=== PATIENT | female | born 1950 | race Caucasian/White ===

== ENCOUNTER 2017-06-14 07:51 | Day surgery (SDC) | payer OTHER, BC ==
--- OUTSIDE RECORDS SUMMARY | 2017-06-14 07:54 | XMS REPORT | Clinical Summary ---
:1950 Author Organization [facility] Address [address] [place] [address] Care Team Providers Name Role Phone Mario Solis MD Primary Care Provider Allergies Active Allergy Reactions Severity Noted Date Comments Adhesive Tape-Silicones Other (See Comments) Low 09/06/2016 Blisters Alcohol Anaphylaxis High 09/06/2016 Isopropyl Alcohol Anaphylaxis High 09/06/2016 Codeine Anaphylaxis High 09/06/2016 Iodinated Contrast- Oral And Anaphylaxis High 09/06/2016 Iv Dye Iodine Anaphylaxis High 09/06/2016 Latex Anaphylaxis High 09/06/2016 Penicillins Rash Low 09/06/2016 Promethazine Hives, Shortness Of Breath High 09/06/2016 Sulfa (Sulfonamide Rash Low 09/06/2016 Antibiotics) Current Medications Prescription Sig. Disp. Refills Start Date End Date Status fluticasone 2 sprays by Each Active (FLONASE) 50 Nare route daily mcg/actuation nasal as needed for spray allergies. traMADol (ULTRAM) Take 50 mg by Active 50 mg tablet mouth every 6 (six) hours as needed for moderate pain. pantoprazole Take 40 mg by Active (PROTONIX) 40 MG EC mouth 2 (two) tablet times a day. riFAXimin (XIFAXAN) Take 550 mg by Active 550 mg tablet mouth 2 (two) times a day. valsartan (DIOVAN) Take 40 mg by Active 40 MG tablet mouth every evening. sucralfate Take 1 g by Active (CARAFATE) 100 mouth 4 (four) mg/mL suspension times a day with meals and nightly. montelukast Take 10 mg by Active (SINGULAIR) 10 mg mouth nightly. tablet kchnnj-tkenefuk-okv Take 1 capsule Active lase (CREON) by mouth 3 36,000-114,000- (three) times a 180,000 unit day with meals. capsule,delayed release(DR/EC) furosemide (LASIX) Take 10-20 mg by Active 20 mg tablet mouth daily as needed. benzonatate Take 100-200 mg Active (TESSALON) 100 MG by mouth 3 capsule (three) times a day as needed for cough. ranitidine (ZANTAC) Take 150 mg by Active 150 MG tablet mouth every evening. cholecalciferol, Take 400 Units Active vitamin D3, by mouth daily. (VITAMIN D3) 400 unit tablet cyanocobalamin 1000 Take 1,000 mcg Active MCG tablet by mouth daily. cetirizine (ZyrTEC) Take 10 mg by Active 10 MG tablet mouth every evening. carvedilol (COREG) Take 3.125 mg by Active 3.125 MG tablet mouth 2 (two) times a day with meals. lactulose 10 Take / - 1/ Active gram/15 mL (15 mL) tsp by mouth solution twice daily magnesium 200 mg Take 1 tablet by Active tablet mouth every evening. LACTOBACILLUS Take 1 capsule Active ACIDOPHILUS by mouth every (PROBIOTIC ORAL) evening. lidocaine-prilocain Apply 1 Active e (EMLA) 2.5-2.5 % application cream topically as needed for mild pain (for port a cath access). lactulose Take 10 g by 09/07/19 Discontinued (CEPHULAC) 10 gram mouth 3 (three) 17 packet times a day. aspirin (ECOTRIN) Take 81 mg by 09/07/19 Discontinued 81 MG enteric mouth daily. 17 coated tablet SACCHAROMYCES Take by mouth. 09/07/19 Discontinued BOULARDII 17 (PROBIOTIC, S.BOULARDII, ORAL) magnesium oxide 250 Take 250 mg by 09/07/19 Discontinued mg tablet mouth daily. 17 rivaroxaban Take 20 mg by 09/13/19 Discontinued (XARELTO) 20 mg mouth daily. 17 tablet pregabalin (LYRICA) Take 3 capsules 90 capsule 1 09/12/2016 09/14/19 Discontinued 25 MG capsule (75 mg total) by 17 mouth daily for 30 days. pregabalin (LYRICA) Take 3 capsules 90 capsule 1 09/13/2016 10/14/19 25 MG capsule (75 mg total) by 17 mouth daily for 30 days. Active Problems Problem Noted Date Gastrointestinal hemorrhage with melena 09/06/2016 Disorder of liver 09/06/2016 Encounters Date Type Specialty Care Team Description Patient Quality Edwin Roman PharmD Procedure Pass General Internal 7 Medicine Procedure Pass Gastroenterology 7 Surgery Gastroenterology [place], ESOPHAGOGASTRODUODENOSCOPY Edwin Nuñez (EGD) Procedure Pass General Surgery 7 Surgery General Surgery Galroxane, ESOPHAGOGASTRODUODENOSCOPY Edwin Nuñze (EGD) [facility] General Internal [facility], Gastrointestinal hemorrhage with melena (Primary Dx); 7 - Encounter Medicine Eden Meza, DO Anemia, unspecified type Edwin Casey MD Dinakar, Hal yusuf MD after 06/13/2016 Social History Tobacco Use Types Packs/Day Years Used Date Never Smoker Alcohol Use Drinks/Week oz/Week Comments No Sex Assigned at Date Recorded Not on file Last Filed Vital Signs Vital Sign Reading Time Taken Blood Pressure 112/56 09/12/2016 7:22 AM CDT Pulse 60 09/12/2016 7:22 AM CDT Temperature 36.4 C (97.5 F) 09/12/2016 7:22 AM CDT Respiratory Rate 16 09/12/2016 7:22 AM CDT Oxygen Saturation 98% 09/12/2016 7:22 AM CDT Inhaled Oxygen Concentration - - Weight 93.6 kg (206 lb 4.8 oz) 09/12/2016 6:38 AM CDT Height 162.6 cm (5' 4") 09/11/2016 5:54 PM CDT Body Mass Index 35.41 09/12/2016 6:38 AM CDT Plan of Treatment Health Maintenance Due Date Last Done Comments COLONOSCOPY 07/10/1999 MAMMOGRAM 07/10/1999 ZOSTER VACCINE 2009 PNEUMOCOCCAL POLYSACCHARIDE VACCINE AGE 65 AND OVER 2014 PNEUMOCOCCAL-13 2014 INFLUENZA VACCINE 10/17/2016 Procedures Procedure Name Priority Date/Time Associated Diagnosis Comments ESOPHAGOGASTRODUODENOSCOPY (EGD) 09/09/2016 Gastrointestinal 9:00 AM CDT hemorrhage with melena after 06/13/2016 Results Prothrombin time with INR (09/12/2016 4:47 AM)Only the most recent of7 resultswithin the time period is included. Component Value Ref Range Prothrombin time 15.6 (H) 12.0 - 15.0 sec INR 1.2 Comment: The International Normalized Ratio (INR) is a therapeutic monitoring tool for patients who are stable on oral anticoagulant therapy. An INR of 2.0-3.0 is suggested for deep vein thrombosis/pulmonary embolism. Specimen Performing Laboratory Blood [facility] DEPARTMENT OF PATHOLOGY AND GENOMIC MEDICINE [address] [place] [address] CBC with platelet and differential (09/12/2016 4:47 AM)Only the most recent of13 resultswithin the time period is included. Component Value Ref Range WBC 3.94 (L) 4.50 - 11.00 k/uL RBC 2.88 (L) 4.20 - 5.50 m/uL HGB 8.2 (L) 12.0 - 16.0 g/dL HCT 26.3 (L) 37.0 - 47.0 % MCV 91.3 82.0 - 100.0 fL MCH 28.5 27.0 - 34.0 pg MCHC 31.2 31.0 - 37.0 g/dL RDW - SD 53.9 37.0 - 55.0 fL MPV 10.2 8.8 - 13.2 fL Platelet count 92 (L) 150 - 400 k/uL Nucleated RBC 0.00 /100 WBC Neutrophils 67.5 39.0 - 69.0 % Lymphocytes 23.9 (L) 25.0 - 45.0 % Monocytes 5.8 0.0 - 10.0 % Eosinophils 2.0 0.0 - 5.0 % Basophils 0.3 0.0 - 1.0 % Immature granulocytes 0.5Comment: "Immature granulocytes" 0.0 - 1.0 % (promyelocytes, myelocytes, metamyelocytes) Specimen Performing Laboratory Blood [facility] DEPARTMENT OF PATHOLOGY AND GENOMIC MEDICINE [address] [place] [address] Estimated GFR (09/12/2016 4:00 AM)Only the most recent of8 resultswithin the time period is included. Component Value Ref Range GFR Non Af Amer 72 mL/min/1.73 m2 GFR Af Amer 87 mL/min/1.73 m2 Comment: Chronic kidney disease: <60 mL/min/1.73m2 Kidney failure: <15 mL/min/1.73m2 The estimated GFR is calculated from the IDMS-traceable Modification of Diet in Renal Disease Equation. The accuracy of the calculation is poor when the creatinine is normal. Calculated values >90 mL/min/1.73m2 are not reported. This equation has not been validated in children (<18 years), women, the elderly (>70 years), or ethnic groups other than Caucasians and Americans. Specimen Performing Laboratory Plasma specimen [facility] DEPARTMENT OF PATHOLOGY AND [address] [address] Phosphorus level (09/12/2016 4:00 AM)Only the most recent of7 resultswithin the time period is included. Component Value Ref Range Phosphorus 3.1 2.4 - 4.5 mg/dL Specimen Performing Laboratory Plasma specimen [facility] PATHOLOGY AND [address] [address] Magnesium level (09/12/2016 4:00 AM)Only the most recent of7 resultswithin the time period is included. Component Value Ref Range Magnesium 1.9 1.6 - 2.4 mg/dL Specimen Performing Laboratory Plasma specimen [facility] DEPART[facility] PATHOLOGY AND [address] [address] Hepatic function panel (09/12/2016 4:00 AM)Only the most recent of4 resultswithin the time period is included. Component Value Ref Range Albumin 3.1 (L) 3.5 - 5.0 g/dL Total bilirubin 1.1 0.0 - 1.2 mg/dL Bilirubin direct 0.3 0.0 - 0.3 mg/dL Alkaline phosphatase 71 35 - 104 U/L Protein 6.0 (L) 6.3 - 8.3 g/dL Comment: [place] 4.6-7.0 g/dL 1 week 4.4-7.6 g/dL 7 months-1year5.1-7.3 g/dL 1-2 years5.6-7.5 g/dL >3 years6.0-8.0 g/dL 18-150 6.3-8.3 g/dL ALT 9 5 - 50 U/L AST 18 10 - 35 U/L Specimen Performing Laboratory Plasma specimen [facility] PATHOLOGY AND [address] [address] Basic metabolic panel (09/12/2016 4:00 AM)Only the most recent of4 resultswithin the time period is included. Component Value Ref Range Sodium 143 135 - 148 mEq/L Potassium 3.3 (L) 3.5 - 5.0 mEq/L Chloride 106 98 - 112 mEq/L CO2 23 (L) 24 - 31 mEq/L Anion gap 14 7 - 15 mEq/L Comment: Starting from June , anion gap calculation no longer incorporates potassium. Please note the change. BUN 10 8 - 23 mg/dL Creatinine 0.8 0.5 - 0.9 mg/dL Glucose 111 (H) 65 - 99 mg/dL Calcium 8.7 (L) 8.8 - 10.2 mg/dL Specimen Performing Laboratory Plasma specimen [facility] DEPARTMENT OF PATHOLOGY AND GENOMIC MEDICINE [address] [place] [address] MRI Abdomen W Wo Contrast (09/11/2016 6:18 PM) Specimen Performing Laboratory [facility] [address] [place] [address] Narrative EXAMINATION:MRI ABDOMEN W WO CONTRAST CLINICAL HISTORY:Liver protocol. Imaging for HCC screening. Cirrhosis TECHNIQUE: Multiplanar multisequence MR images of the abdomen were obtained pre - and post dynamic intravenous administration of Gadolinium.. COMPARISON:June 24, 2015 IMPRESSION: 1.Diffuse cirrhotic changes are again present throughout the liver. When compared to prior examination, there has been no interval change. No suspicious enhancing masses are present. 2.The spleen remains enlarged. 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 Mild thrombus is noted in the left intrahepatic portal vein. The superior mesenteric and splenic veins are patent. 3.The pancreas, adrenals, and kidneys are within normal limits 4.Minimal atelectasis in lung bases 5.No suspicious focal marrow signal abnormalities are present. Hemangioma in T9 and T12 are unchanged 6.Small amount of ascites in the abdomen Incidental Abdominal findings [facility] PQRS #405 required reporting elements: Liver < 0.5 cm: none Recommendation:n/a Cystic Renal < 1 cm: none Recommendation:n/a Adrenal < 1 cm:none Recommendation:n/a [facility]-[id number] Procedure Note Hm Interface, Radiology Results Incoming - 09/11/2016 7:13 PM CDT EXAMINATION: MRI ABDOMEN W WO CONTRAST CLINICAL HISTORY: Liver protocol. Imaging for HCC screening. Cirrhosis TECHNIQUE: Multiplanar multisequence MR images of the abdomen were obtained pre - and post dynamic intravenous administration of Gadolinium. . COMPARISON: June 24, 2015 IMPRESSION: 1. Diffuse cirrhotic changes are again present throughout the liver. When compared to prior examination, there has been no interval change. No suspicious enhancing masses are present. 2. The spleen remains enlarged. 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 Mild thrombus is noted in the left intrahepatic portal vein. The superior mesenteric and splenic veins are patent. 3. The pancreas, adrenals, and kidneys are within normal limits 4. Minimal atelectasis in lung bases 5. No suspicious focal marrow signal abnormalities are present. Hemangioma in T9 and T12 are unchanged 6. Small amount of ascites in the abdomen Incidental Abdominal findings [facility] PQRS #405 required reporting elements: Liver < 0.5 cm: none Recommendation: n/a Cystic Renal < 1 cm: none Recommendation: n/a Adrenal < 1 cm: none Recommendation: n/a [facility]-[id number] Smear review (09/11/2016 5:00 AM)Only the most recent of5 resultswithin the time period is included. Component Value Ref Range Platelet slide review Decreased (A) Anisocytosis Moderate Polychromasia Moderate Tear drop cells Occasional Ovalocytes Moderate Specimen Performing Laboratory [facility] PATHOLOGY [address] [address] Reticulocyte count (09/11/2016 5:00 AM)Only the most recent of2 resultswithin the time period is included. Component Value Ref Range Retic %, auto 5.7 (H) 0.5 - 2.1 % Retic absolute, auto 0.1607 (H) 0.0210 - 0.1155 m/uL Specimen Performing Laboratory Blood [facility] PATHOLOGY [address] [address] Ammonia level (09/11/2016 5:00 AM)Only the most recent of2 resultswithin the time period is included. Component Value Ref Range Ammonia 24 11 - 51 umol/L Specimen Performing Laboratory Blood [address] [address] Vitamin B12 level (09/11/2016 4:00 AM)Only the most recent of2 resultswithin the time period is included. Component Value Ref Range Vitamin B12 1,536 (H) 211 - 946 pg/mL Comment: Significant overlap exists between normal and deficiency states. However, most patients with deficiencies will have Serum B12 <200 pg/mL. Specimen Performing Laboratory Serum [facility] PATHOLOGY [address] [address] Total iron binding capacity (09/10/2016 5:10 AM) Component Value Ref Range Iron level 38 37 - 145 ug/dL Iron binding capacity 338 200 - 400 ug/dL % Saturation 11.2 (L) 15.0 - 38.0 % Specimen Performing Laboratory Plasma specimen [facility]PART[facility] PATHOLOG[facility] [address] [address] LDH (09/10/2016 5:10 AM) Component Value Ref Range LDH 126 87 - 225 U/L Specimen Performing Laboratory Plasma specimen [facility] DEPARTMENT OF PATHOLOGY [address] [address] Folate level (09/10/2016 5:10 AM) Component Value Ref Range Folate 7.8 4.8 - 24.2 ng/mL Specimen Performing Laboratory Serum [facility] PATHOLOGY [facility] [address] [place] [address] Ferritin level (09/10/2016 5:10 AM) Component Value Ref Range Ferritin level 67 13 - 150 ng/mL Specimen Performing Laboratory Plasma specimen [facility] DEPARTMENT OF PATHOLOGY AND [address] [address] POC glucose (09/09/2016 4:58 PM)Only the most recent of10 resultswithin the time period is included. Component Value Ref Range POC glucose 91 65 - 99 mg/dL Comment: [facility] Notified RN Meter ID: [id number] Contour Stitcher: Camilla Vila Specimen Performing Laboratory [facility] DEPARTMENT OF PATHOLOGY AND [address] [address] Ionized calcium (09/09/2016 2:20 AM)Only the most recent of2 resultswithin the time period is included. Component Value Ref Range pH 7.41 Ionized calcium 1.21 1.11 - 1.32 mmol/L Specimen Performing Laboratory Plasma specimen [facility] PATHOLOGY [address] [address] Bilirubin direct (09/09/2016 2:20 AM) Component Value Ref Range Bilirubin direct 0.6 (H) 0.0 - 0.3 mg/dL Specimen Performing Laboratory Plasma specimen [facility] DEPART[facility] PATHOLOGY AND [address] [address] Comprehensive metabolic panel (09/09/2016 2:20 AM)Only the most recent of4 resultswithin the time period is included. Component Value Ref Range Sodium 140 135 - 148 mEq/L Potassium 3.9 3.5 - 5.0 mEq/L Chloride 104 98 - 112 mEq/L CO2 23 (L) 24 - 31 mEq/L Anion gap 13 7 - 15 mEq/L Comment: Starting from June , anion gap calculation no longer incorporates potassium. Please note the change. BUN 14 8 - 23 mg/dL Creatinine 0.9 0.5 - 0.9 mg/dL Glucose 107 (H) 65 - 99 mg/dL Calcium 8.5 (L) 8.8 - 10.2 mg/dL Protein 5.7 (L) 6.3 - 8.3 g/dL Comment: [place] 4.6-7.0 g/dL 1 week 4.4-7.6 g/dL 7 months-1year5.1-7.3 g/dL 1-2 years5.6-7.5 g/dL >3 years6.0-8.0 g/dL 18-150 6.3-8.3 g/dL Albumin 3.2 (L) 3.5 - 5.0 g/dL A/G ratio 1.3 0.7 - 3.8 Alkaline phosphatase 72 35 - 104 U/L AST 17 10 - 35 U/L ALT 9 5 - 50 U/L Total bilirubin 2.2 (H) 0.0 - 1.2 mg/dL Specimen Performing Laboratory Plasma specimen [facility] PATHOLOG[facility] [address] [address] Partial thromboplastin time, activated (09/09/2016 2:15 AM)Only the most recent of3 resultswithin the time period is included. Component Value Ref Range PTT 26.0 23.0 - 36.0 sec Comment: PTT therapeutic range for unfractionated heparin is 61.0-112.0 seconds which corresponds to Anti-Xa 0.3-0.7 U/ml. Specimen Performing Laboratory Blood [facility] PATH[facility] [address] [address] Lactic acid level (09/08/2016 1:47 PM)Only the most recent of3 resultswithin the time period is included. Component Value Ref Range Lactic acid 1.2 0.5 - 2.2 mmol/L Specimen Performing Laboratory Plasma specimen [facility] PATH[facility] [address] [address] Transfuse RBC (09/07/2016 8:24 PM)Only the most recent of7 resultswithin the time period is included.Lipase level (09/07/2016 6:30 PM) Component Value Ref Range Lipase 52 13 - 60 U/L Specimen Performing Laboratory Plasma specimen [facility] PATH[facility] [address] [address] Glucose level (09/07/2016 6:30 PM) Component Value Ref Range Glucose 128 (H) 65 - 99 mg/dL Specimen Performing Laboratory Plasma specimen [facility] PATH[facility] [address] [address] Amylase level (09/07/2016 6:30 PM) Component Value Ref Range Amylase 38 13 - 73 U/L Specimen Performing Laboratory Plasma specimen [facility] DEPARTMENT OF PATHOLOGY [address] [address] Urinalysis, automated with microscopy (09/07/2016 9:40 AM) Component Value Ref Range Color, UA Yellow Appearance, UA Clear Specific gravity, UA 1.017 1.001 - 1.035 pH, UA 6.0 5.0 - 8.5 Protein, UA Negative Negative Glucose, UA Negative Negative Ketones, UA Negative Negative Bilirubin, UA Negative Negative Blood, UA Negative Negative Nitrite, UA Negative Negative Urobilinogen, UA <2.0 <2.0 Leukocyte esterase, UA Small (A) Negative Epithelial cells, UA 3 /HPF WBC, UA 11 (H) 0 - 4 /HPF RBC, UA 1 0 - 2 /HPF Bacteria, UA Few None seen Hyaline casts, UA 14 /LPF Yeast, UA Moderate (A) Yeast with pseudohyphae, UA None seen Specimen Performing Laboratory Urine [facility] DEPARTMENT OF PATHOLOGY AND GENOMIC MEDICINE [address] [place] [address] XR Abdomen 1 Vw Portable (09/07/2016 7:50 AM) Specimen Performing Laboratory [facility] [address] [place] [address] Narrative EXAMINATION:XR ABDOMEN 1 VW PORTABLE CLINICAL HISTORY:ABDOMINAL PAIN COMPARISON:None. IMPRESSION: There is a nonspecific bowel gas pattern. No free air is identified. Moderate amount retained stool in colon Phlebolith Degenerative changes are present throughout the bony structures without evidence of a suspicious focal lesion. [facility]-[id number] Procedure Note Hm Interface, Radiology Results Incoming - 09/07/2016 8:25 AM CDT EXAMINATION: XR ABDOMEN 1 VW PORTABLE CLINICAL HISTORY: ABDOMINAL PAIN COMPARISON: None. IMPRESSION: There is a nonspecific bowel gas pattern. No free air is identified. Moderate amount retained stool in colon Phlebolith Degenerative changes are present throughout the bony structures without evidence of a suspicious focal lesion. [facility]-[id number] Troponin (09/07/2016 6:49 AM)Only the most recent of2 resultswithin the time period is included. Component Value Ref Range Troponin <0.30 0.00 - 0.30 ng/mL Comment: 0.30 - 1.49 ng/mlMay indicate increased risk of acute coronary syndrome. >=1.5 ng/mlConsistent with acute myocardial infarction. The diagnostic value of a single normal or non-diagnostic result is questionable.Serial samples at 2-6 hour intervals are required to rule out acute myocardial injury. Specimen Performing Laboratory Plasma specimen [facility] DEPARTMENT OF PATHOLOGY AND GENOMIC MEDICINE [address] [place] [address] Head Wo Contrast (09/07/2016 6:02 AM) Specimen Performing Laboratory [facility] [address] [place] [address] Narrative EXAMINATION:CT HEAD WO CONTRAST COMPARISON:None CLINICAL HISTORY:confusiondifficulty wword finding COMMENTS:Axial noncontrast CT scan slices of the head were obtained. CT imaging was performed with iterative reconstruction technique and/or automated exposure control to reduce radiation dose. FINDINGS:There is a small polyp or retention cyst in the right maxillary sinus. There is calcific atherosclerotic change in the arteries at the skull base. There is mild involutional change in the brain. IMPRESSION:No acute intracranial hemorrhage or mass effect. [facility]-[id number] Procedure Note Interface, Radiology Results Incoming - 09/07/2016 6:08 AM CDT EXAMINATION: CT HEAD WO CONTRAST COMPARISON: None CLINICAL HISTORY: confusion difficulty w word finding COMMENTS: Axial noncontrast CT scan slices of the head were obtained. CT imaging was performed with iterative reconstruction technique and/or automated exposure control to reduce radiation dose. FINDINGS: There is a small polyp or retention cyst in the right maxillary sinus. There is calcific atherosclerotic change in the arteries at the skull base. There is mild involutional change in the brain. IMPRESSION: No acute intracranial hemorrhage or mass effect. [facility]-[id number] Alpha fetoprotein (09/07/2016 12:40 AM) Component Value Ref Range Alpha fetoprotein 1.6 0.0 - 8.3 ng/mL Comment: The Jalil 8000 AFP immunoassay was used. Results obtained with different assay methods or kits should not be used interchangeably and may be different. Specimen Performing Laboratory Serum [facility]PARTMENT OF PATHOLOGY AND GENOMIC MEDICINE [address] [place] [address] Thyroid stimulating hormone (09/07/2016 12:40 AM) Component Value Ref Range TSH 2.93 0.27 - 4.20 uIU/mL Specimen Performing Laboratory Plasma specimen [facility]PART[facility] OF PATHOLOGY AND GENOMIC MEDICINE [address] [place] [address] T4 (09/07/2016 12:40 AM) Component Value Ref Range T4 9.1 4.5 - 11.7 ug/dL Specimen Performing Laboratory Plasma specimen [facility] OF PATHOLOGY AND GENOMIC MEDICINE [address] [place] [address] Blood culture, aerobic & anaerobic (09/07/2016 12:31 AM) Component Value Ref Range Blood culture isolate No growth after 5 days of incubation. Comment: Specimen Information Specimen Source: Blood Specimen Site: Line, Port-a-cath Specimen Performing Laboratory Blood - Line, port-a-cath [facility] DEPARTMENT OF PATHOLOGY AND [facility] [address] [place] [address] Hemoglobin A1c (09/07/2016 12:18 AM) Component Value Ref Range Hemoglobin A1C 5.0 4.0 - 5.6 % Comment: HbA1c cutoffs for diagnosing diabetes: 4.0% - 5.6%=normal 5.7% - 6.4%=increased risk for diabetes (prediabetes) >=6.5%=diabetes Goals for glycemic control (ADA 2016) < 7.0%Target for non adults with diabetes. More or less stringent targets may be appropriate for individual patients. <7.5% Target for Children and adolescents with type 1 diabetes. Specimen Performing Laboratory Blood [facility] DEPARTMENT OF PATHOLOGY AND [facility] [address] [place] [address] Prepare RBC, 2 Units (09/06/2016 9:20 PM)Only the most recent of2 resultswithin the time period is included. Component Value Ref Range Product name Apheresis Red Cell AS3 #1 LR Unit number [id number] Product code [id number] Dispense status Transfused Blood expiration date 20160915 Blood type code 0600 Blood type A NEGATIVE Product name Red Blood Cells -1, Leukored Unit number [id number] Product code [id number] Dispense status Transfused Blood expiration date 20160918 Blood type code 0600 Blood type A NEGATIVE Specimen Performing Laboratory [facility] DEPARTMENT OF PATHOLOGY AND [facility] [address] [place] [address] Type and screen (09/06/2016 9:20 PM) Component Value Ref Range ABO grouping A Rh type NEG Antibody screen (gel) NEG Specimen Performing Laboratory Blood [facility] DEPARTMENT OF PATHOLOGY AND [address] [address] Troponin, I-Stat (09/06/2016 6:30 PM) Component Value Ref Range Troponin, I-Stat 0.00 0.00 - 0.08 ng/mL Comment: 0.30 - 1.49 ng/mlMay indicate increased risk of acute coronary syndrome. >=1.5 ng/mlConsistent with acute myocardial infarction. The diagnostic value of a single normal or non-diagnostic result is questionable.Serial samples at 2-6 hour intervals are required to rule out acute myocardial injury. Specimen Performing Laboratory Plasma specimen [facility] [address] Prothrombin time with INR, I-Stat (09/06/2016 6:30 PM) Component Value Ref Range POC prothrombin time 13.3 11.0 - 14.5 sec POC INR 1.1 Comment: The International Normalized Ratio (INR) is a therapeutic monitoring tool for patients who are stable on oral anticoagulant therapy. An INR of 2.0-3.0 is suggested for deep vein thrombosis/pulmonary embolism. Specimen Performing Laboratory Blood [facility] MEDICINE[address] [address] B natriuretic pep, I-Stat (09/06/2016 6:30 PM) Component Value Ref Range BNP, I-Stat 38 0 - 100 pg/mL Specimen Performing Laboratory Blood [facility]OM[facility] MEDICINE[address] [address] Creatine kinase, total (CPK) (09/06/2016 6:30 PM) Component Value Ref Range Creatine kinase 45 30 - 190 U/L Specimen Performing Laboratory Plasma specimen [facility] [address] ECG ED Preliminary Interpretation - NOT AN ORDER (09/06/2016 6:02 PM) Zulema Corcoran DO 09/06/20166:02 PM ECG ED Preliminary Interpretation - Not an Order Performed by: EDEN CORCORAN Authorized by: EDEN CORCORAN ECG reviewed by ED Physician in the absence of a produce buyer: no Previous ECG: Previous ECG:Unavailable Interpretation: Interpretation: normal Rate: ECG rate:70 ECG rate assessment: normal Rhythm: Rhythm: sinus rhythm Ectopy: Ectopy: none QRS: QRS axis:Normal Conduction: Conduction: normal ST segments: ST segments:Normal T waves: T waves: normal ECG 12 lead (09/06/2016 5:10 PM) Component Value Ref Range Ventricular rate 70 Atrial rate 70 CO interval 162 QRSD interval 88 QT interval 400 QTC interval 432 P axis 1 5 QRS axis 1 -28 T wave axis 41 EKG impression Normal sinus rhythm-Minimal voltage criteria for LVH, may be normal variant-Borderline ECG-In automated comparison with ECG of 06-JUL-2014 20:58,-No significant change was found- Specimen Performing Laboratory [facility] [address] [place] [address] after 06/13/2016 Insurance Payer Benefit Plan / Group Subscriber ID Type Phone Address MEDICARE MEDICARE PART A AND B xxxxxxxxxx Medicare [place], [place] BCBS BCBS PAR/TRAD PLAN xxxxxxxxxxxx Indemnity Home: [address] [phone] [place] [id number]
[2017-06-14] MEDS ORDERED: HEPARIN 500 UNIT/5 ML SYR IV ONE ×2 (08:15→09:34)
== END 2017-06-14 09:30 | disposition home or self-care (01) ==
LOC: DS 07:51
DX: Z45.2 Encounter for adjustment and management of vascular access device (principal); Z95.828 Presence of other vascular implants and grafts
CPT/HCPCS: 96523; J1642 ×2; 36593